=== PATIENT | male | born 1995 ===

== ENCOUNTER 2016-08-24 09:02 | Emergency (ER) | payer OTHER ==
[~2016-08-24] VITALS: Ht 177.8 cm; Wt 64.9 kg
[2016-08-24 09:16] VITALS: TEMP 37.6; Ht 177.8 cm; Wt 64.9 kg
[2016-08-24] MEDS ORDERED: ALUMINUM/MAGNESIUM/SIMETH (MAALOX MAX) 30 ML UDC PO STA (09:46)
[2016-08-24 09:51] VITALS: O2SAT 98
[2016-08-24 09:53] LABS: HEMATOCRIT 41.9 % (42-52); MEAN CELL VOLUME 78.6 fL (80-100); MEAN CORPUSCULAR HEMOGLOBIN 28.1 pg (25-34); MEAN CORPUSCULAR HGB CONC 35.8 g/dl (32-36); MEAN PLATELET VOLUME 10.8 fL (7.4-10.4); PLATELET COUNT 134 K/uL (130-400); RED BLOOD COUNT 5.33 M/uL (4.7-6.1); WHITE BLOOD COUNT 5.86 K/uL (4.8-10.8)
--- NOTE | 2016-08-24 10:00 | EMERGENCY ROOM VISIT NOTE ---
History Report prepared by Katherine: Good [facility]al Under the Supervision of: Dr. Isidoro Haile M.D. First contact with patient: 09:46 Chief Complaint: CHEST PAIN Stated Complaint: CHEST AND THROAT PAIN Nursing Triage Summary: chesp pain fever cough for 2 days History of Present Illness The patient is a 20 year old male who presents to the Emergency Room with complaints of worsening central chest pain beginning one day prior to arrival. He currently rates his discomfort as a 5/10 in severity, but states it was a 7-8 /10 in severity this morning. The patient describes the pain as burning. He associates chest pain that radiates to his throat, cough, and vomiting with today's symptoms. The patient states he took pain medication today which helped relieve his symptoms a little. He notes his chest pain worsens with coughing. The patient denies the chest pain being related to food he ate. He notes he has been urinating and moving his bowels normally. The patient denies experiencing similar symptoms in the past. He denies palpitations, shortness of breath, diaphoresis, lightheadedness, leg pain, abdominal pain, and black or bloody stool. Source of History: patient Onset: one day [employer] Position: chest (central) Symptom Intensity: Now 5/10. Was 7-8/10. Quality: burning Timing: worsening Modifying Factors (Worsening): other (coughing) Modifying Factors (Relieving): other (pain medication) Associated Symptoms: + chest pain, + cough, + vomiting, No SOB, No back pain , No diaphoresis, No hematochezia, No melena Note: Associated symptoms: chest pain that radiates to the throat. Review of Systems All systems have been listed, reviewed, and are negative other than those previously mentioned. Please see Additional Medical History Sheet. Past Medical & Surgical Medical Problems: (1) No pertinent past medical history Family History Hypertension Lung disease Social History Smoking Status: Never Smoker Marital Status: single Occupation Status: [employer] student Current/Historical Medications Scheduled Ranitidine Hcl (Zantac), 150 MG PO BID Scheduled PRN [Panadol Extra], 1 TAB PO Q8 PRN for Pain Allergies Coded Allergies: No Known Allergies (Unverified , 08/24/16) Physical Exam Vital Signs Date Time Temp Pulse Resp B/P Pulse Ox O2 Delivery O2 Flow Rate FiO2 2/19/17 13:18 94 16 120/66 98 08/24/16 11:44 90 16 104/68 99 Room Air 08/24/16 10:13 103 18 127/85 99 Room Air 08/24/16 09:51 98 Room Air 08/24/16 09:16 37.6 100 18 133/81 98 Room Air Physical Exam GENERAL: Patient awake, alert, oriented x 3. Patient follows commands. Patient does not appear toxic. Patient is adequately hydrated and well- nourished. SKIN: No erythema, pallor, cyanosis or rash HEENT: Normal head, pupils equal, reactive to light and accommodation. LUNGS: Clear to auscultation. No wheezes, no rales, no rhonchi. HEART: No murmurs. No gallops. No rubs ABDOMEN: No masses, no rebound, no hepatomegaly or splenomegaly. EXTREMITIES: No signs of trauma. No pedal or pretibial edema. No calf or thigh tenderness. NEUROLOGIC: Cranial nerves II-XII within normal limits. No gross motor sensory function deficits. Medical Decision & Procedures ER Provider Diagnostic Interpretation: X ray results are stated below per my interpretation and the radiologist's interpretation. CHEST 2 VIEWS ROUTINE CLINICAL HISTORY: CHEST PAIN COMPARISON STUDY: No previous studies for comparison. FINDINGS: The bones soft tissues and hemidiaphragms are normal. The cardiomediastinal silhouette is normal. The lungs are clear. The pulmonary vasculature is normal. IMPRESSION: Negative chest. Electronically signed by: Toño Rios M.D. 08/24/2016 10:25 AM Laboratory Results 08/24/16 09:30 08/24/16 09:30 Test 08/24/16 09:30 Red Blood Count 5.33 M/uL (4.7-6.1) Mean Corpuscular Volume 78.6 fL (80-100) Mean Corpuscular Hemoglobin 28.1 pg (25-34) Mean Corpuscular Hemoglobin Concent 35.8 g/dl (32-36) RDW Standard Deviation 32.6 fL (36.4-46.3) RDW Coefficient of Variation 11.4 % (11.5-14.5) Mean Platelet Volume 10.8 fL (7.4-10.4) Anion Gap 12.0 mmol/L (3-11) Est Creatinine Clear Calc Drug Dose 139.8 ml/min Estimated GFR () > 150.0 Estimated GFR (Non- 130.9 BUN/Creatinine Ratio 16.2 (10-20) Calcium Level 9.0 mg/dl (8.5-10.1) Troponin I < 0.015 ng/ml (0-0.045) Laboratory results as stated above per my review. Medications Administered Medications (Trade) Dose Ordered Sig/Sergey Route Start Time Stop Time Status Last Admin Dose Admin Al Hydrox/Mg Hydrox/Simethicone (Maalox Max Susp) 30 ml NOW STAT PO 08/24/16 09:46 08/24/16 09:48 DC 08/24/16 09:46 30 ML ECG Indication: chest pain Rate (beats per minute): 87 Rhythm: normal sinus Findings: no ectopy (no other ectopy), other (sinus arrhythmia) ED Course 0942: Past medical records reviewed. The patient was evaluated in room B9. A complete history and physical examination was performed. 0946: Maalox Max Susp 30 ml PO. 1220: Upon reevaluation, the patient appeared to have improvement of his symptoms. I discussed today's findings with him. He verbalized agreement of the treatment plan. The patient was discharged home. Medical Decision I considered multiple diagnoses including myocardial infarction, chest wall pain , pericarditis, myocarditis, aortic emergencies, pulmonary embolism, congestive heart failure, GI causes, and other significant cardiopulmonary disorders. Multiple labs, EKG and imaging were obtained. Please see above. The patient was given Mylanta without significant change in his pain. Despite that I believe he has pain in his esophagus most likely from reflux. The patient has no evidence of an acute cardiopulmonary event. The patient is safe to return home. The patient was started on Zantac and will continue that medication. HE IS TO FOLLOW[facility]UP AT [facility] Impression Primary Impression: GERD (gastroesophageal reflux disease) Scribe Attestation The scribe's documentation has been prepared under my direction and personally reviewed by me in its entirety. I confirm that the note above accurately reflects all work, treatment, procedures, and medical decision making performed by me. Departure Information Dispostion Home / Self-Care Prescriptions Ranitidine Hcl (ZANTAC) 150 Mg Tab 150 MG PO BID, #20 TAB Prov: Isidoro Haile M.D. 08/24/16 Referrals No Doctor, Assigned (PCP) Forms HOME CARE DOCUMENTATION FORM, IMPORTANT VISIT INFORMATION Patient Instructions ED GERD, [facility] Additional Instructions 1 Zantac twice a day for 10 days. FOLLOW-UP AT [facility] within the next week. Return here sooner if your pain gets any worse.
[2016-08-24 10:05] LABS: BLOOD UREA NITROGEN 13 mg/dl (7-18); BUN/CREATININE RATIO 16.2 (10-20); CARBON DIOXIDE 24 mmol/L (21-32); CHLORIDE 103 mmol/L (98-107); CREATININE 0.78 mg/dl (0.60-1.40); GLUCOSE 95 mg/dl (70-99); POTASSIUM 3.6 mmol/L (3.5-5.1); SODIUM 139 mmol/L (136-145)
[2016-08-24] MEDS ORDERED: [UNRECOGNIZED DRUG - OTHER] PO (10:19)
--- NOTE | 2016-08-24 10:26 | DIAGNOSTIC IMAGING REPORT ---
CHEST 2 VIEWS ROUTINE CLINICAL HISTORY: CHEST PAIN COMPARISON STUDY: No previous studies for comparison. FINDINGS: The bones soft tissues and hemidiaphragms are normal. The cardiomediastinal silhouette is normal. The lungs are clear. The pulmonary vasculature is normal. IMPRESSION: Negative chest. Electronically signed by: Toño Rios M.D. 08/24/2016 10:25 AM Dictated Date/Time: 08/24/2016 10:25 AM
[2016-08-24] MEDS ORDERED: RANI150T3 PO (12:37)
[2016-08-24 13:18] VITALS: BP 120/66; PULSE 94; O2SAT 98
== END 2016-08-24 13:20 | disposition home or self-care (01) ==
LOC: C.EDB 09:05
DX: K21.9 Gastro-esophageal reflux disease without esophagitis (principal); Z82.49 Family history of ischemic heart disease and other diseases of the circulatory system